=== PATIENT | male | born 1950 | race Caucasian/White ===

== ENCOUNTER 2023-03-27 09:10 | Day surgery (SDC) | payer OTHER ==
[~2023-03-27] VITALS: Ht 177.8 cm; Wt 83.2 kg
[2023-03-27] VITALS (15 sets, daily range): BP systolic 108–156; BP diastolic 74–96
[~2023-03-27 09:10] MED LIST: MULVITA PO
--- NOTE | 2023-03-27 11:17 | NUR ---
03/27/23 1117 Cristina Pinzon HISTORY, CHART, MEDICATIONS AND ALLERGIES REVIEWED BEFORE START OF PROCEDURE. PATIENT CONFIRMS NPO STATUS AND AGREES WITH SCHEDULED PROCEDURE. 3-LEAD EKG REVIEWED WITH PHYSICIAN PRIOR TO START OF PROCEDURE. MONITOR INTACT WITH CONTINUOUS PULSE OXIMETRY,CAPNOGRAPHY, 3-LEAD EKG, INTERMITTENT BP. SUPPLEMENTAL O2 TO BE TITRATED THROUGHOUT PROCEDURE TO MAINTAIN O2 SATURATION ABOVE 90%. PATIENT DETERMINED TO BE ASA APPROPRIATE FOR PROPOFOL SEDATION PRIOR TO START OF PROCEDURE BY DR. VELÁZQUEZ. MALLAMPATI CLASS 2 AIRWAY: COMPLETE VISUALIZATION OF THE [facility].
== END 2023-03-27 12:10 | disposition home or self-care (01) ==
LOC: ORSCMMR 09:10 → ORD 10:00 → ORSCMMR 12:10
PROVIDERS: Internal Medicine Gastroenterology
PROC: 0DBL8ZX Excision of Transverse Colon, Via Natural or Artificial Opening Endoscopic, Diagnostic (ICD-10-PCS; principal; 2023-03-27 10:00)
DX: Z12.11 Encounter for screening for malignant neoplasm of colon (principal); D12.3 Benign neoplasm of transverse colon; I10 Essential (primary) hypertension; K64.8 Other hemorrhoids
CPT/HCPCS: 88305; J2704; J7120